=== PATIENT | female | born 1955 | race Caucasian/White ===

== ENCOUNTER 2018-04-15 13:15 | Outpatient (CLI) | payer OTHER | END 2018-04-15 13:16 | disposition home or self-care (01) | PROVIDERS: ATTEND Orthopaedic Surgery | DX: I89.0 Lymphedema, not elsewhere classified (principal) | CPT/HCPCS: G8978-GP-CL; G8979-GP-CL; G8980-GP-CL ==

== ENCOUNTER 2018-07-16 09:09 | Outpatient (CLI) | payer OTHER ==
--- NOTE | 2018-07-16 12:06 | HP ---
HISTORY OF PRESENT ILLNESS: Ms. Dianna Hendricks is a very pleasant 63-year-old, who [facility] of 2 wounds of the right lower extremity. 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 The patient states that she has been cleansing her wounds and applying an antibiotic ointment to the wounds followed by gauze secured with tape. The patient states that her wounds have improved with the preceding regimen. She states that she has been changing her dressing on a daily basis. The patient states that she has received treatment for lymphedema in the past and has been prescribed compression garments, which she does not utilize at the present time. She states that she also has been prescribed a pneumatic pump in the past for treatment of her lymphedema. PAST MEDICAL HISTORY: 1. Hypertension. 2. Chronic lower extremity lymphedema with non-filarial elephantiasis. 3. DVT of right lower extremity, remote. 4. Anemia. PAST SURGICAL HISTORY: 1. Cholecystectomy. 2. Right lower extremity surgery at age 16 and at age 17 for lymphedema. 3. x5. 4. Appendectomy. 5. Teeth extraction. 6. Right upper extremity surgery for fracture. 7. Left foot surgery. MEDICATIONS: The patient does not have a list of her medications with her today. She states that she is, however, taking Keflex. ALLERGIES: PENICILLIN. SOCIAL HISTORY: Social history is negative for tobacco or EtOH use. FAMILY HISTORY: Family history is significant for coronary artery disease. The patient states that her father was diagnosed with coronary artery disease. Family history is also significant for diabetes mellitus. The patient states that her grandmother was diagnosed with diabetes mellitus. PHYSICAL EXAMINATION: VITAL SIGNS: Temperature 97.5, pulse 61, blood pressure 151/67. GENERAL: A 63-year-old female, sitting on chair in examination room, in no acute distress. HEENT: Normocephalic and atraumatic. NECK: No nuchal rigidity. CHEST: Clear to auscultation. CV: Regular rate and rhythm. ABDOMEN: Soft. EXTREMITIES: Lymphedema of both lower extremities is noted on exam today. Two wounds of the right lower extremity are present, which measure approximately 8.0 x 7.0 cm and 1.8 x 2.1 cm. Granulation tissue is present within the margins of each wound. No purulent drainage is associated with either wound. No erythema of the skin surrounding either wound is present. No maceration of the skin of the periwound of either wound is noted. Numerous varicosities are present over the right and left lower extremities. ASSESSMENT AND PLAN: 1. Chronic lower extremity lymphedema with non-filarial elephantiasis. For both wounds of the right lower extremity, dressing changes of Medihoney will be initiated. These dressing changes are to be performed on a daily basis after cleansing and irrigation. The patient will continue to perform her own dressing changes. The patient is to continue Keflex as previously prescribed. Arrangements will also be made for Ms. Hendricks to be evaluated for in-home lymphedema therapy with a pneumatic pump. The patient understands and is in agreement with the preceding treatment plan. 2. Hypertension. 3. Deep venous thrombosis of right lower extremity, remote. 4. Anemia. Job ID: [id number]
[2018-07-16] MEDS ORDERED: Sodium Chloride 0.9% 15 ML NEB ONE (18:00)
== END 2018-07-16 09:10 | disposition home or self-care (01) ==
LOC: WCC 09:09
PROVIDERS: ATTEND Family Medicine
DX: I89.0 Lymphedema, not elsewhere classified (principal); I10 Essential (primary) hypertension; D64.9 Anemia, unspecified; Z86.718 Personal history of other venous thrombosis and embolism
CPT/HCPCS: 99203; A4218; G0463

== ENCOUNTER 2018-09-25 20:03 | Inpatient (IN) | payer OTHER ==
[~2018-09-25 20:03] MED LIST: ISOVUE-370 76%-LOCM 1 ML ONE
--- NOTE | 2018-09-25 20:41 | RAD ---
Portable frontal chest radiograph: 09/25/2018 COMPARISON: 06/26/2017 HISTORY: Pneumonia, cough FINDINGS: There is persistent dense opacity in the right base suggesting nonspecific airspace disease and pleural fluid. There is no pneumothorax. There is mild increased linear interstitial density in the left base, new. IMPRESSION: Focal inferior right basilar pleural-parenchymal opacity, nonspecific. This appears to re present a chronic process which could be on the basis of chronic pleural effusion with pulmonary parenchymal volume loss or scar. Superimposed infectious pneumonitis or underlying mass cannot be exc luded. Follow-up pulmonary consultation is advised given persistent abnormality in this region. CODE T
[2018-09-25 21:00] LABS: #Basophils 0.1 thou/uL (0.0-0.2); #Lymphocytes 0.4 thou/uL (1.20-3.40); #Monocytes 0.5 thou/uL (0.11-0.59); #Neutrophils 13.4 thou/uL (1.40-6.50); %Basophils 0.8 % (0.0-1.0); %Eosinophils 0.3 % (0.0-10.0); %Lymphocytes 2.4 % (21.0-51.0); %Monocytes 3.8 % (0.0-10.0); %Neutrophils 92.7 % (42.0-75.0); Hemoglobin 12.5 g/dL (12.0-16.0); Mean Corpuscular HGB CONC 31.7 g/dL (32.0-36.0); Mean Corpuscular Volume 88.3 fL (78.0-98.0); Mean Platelet Volume 8.5 fL (7.4-10.4); Platelet Count 245 thou/uL (130-400); Red Blood Cell (RBC) Count 4.48 mill/uL (4.20-5.40); White Blood Cell (WBC) Count 14.4 thou/uL (4.8-10.8)
[2018-09-25 21:21] LABS: ALT (SGPT) 10 U/L (8-55); AST (SGOT) 18 U/L (5-34); Albumin 3.7 g/dL (3.4-4.8); Alkaline Phosphatase 40 U/L (40-150); Anion Gap 17 mmol/L (10-20); BUN (Urea Nitrogen) 20 mg/dL (9.8-20.1); Bilirubin, Total 0.4 mg/dL (0.2-1.2); Calc. Creatinine Clearance 0 mL/min (70-130); Calcium 9.1 mg/dL (7.8-10.44); Carbon Dioxide 23 mmol/L (23-31); Chloride 103 mmol/L (98-107); Estimated GFR-MDRD 64; Glucose 103 mg/dL (80-115); Potassium 4.1 mmol/L (3.5-5.1); Protein, Total 7.7 g/dL (6.0-8.3); Sodium 139 mmol/L (136-145)
--- NOTE | 2018-09-25 22:27 | CT ---
Chest CT: 09/25/2018 COMPARISON: None HISTORY: Cough, pneumonia, shortness of breath TECHNIQUE: Axial CT imaging obtained at 5 mm intervals from lung apices through upper abdomen with IV contrast. Coronal reformatted imaging obtained. FINDINGS: Limited assessment of the upper abdomen demonstrates ill-defined hypodensity in the kayy h epatis and upper retroperitoneum adjacent to the vascular structures, unchanged when compared to CT of abdomen and pelvis examination performed at 02/05/2013. There is a small/moderate right pleural effusion, increased in volume since the 2013 examination. There is mild nonspecific bilateral axillary brianna prominence. No mediastinal or hilar lymphadenopath y. No pericardial or mediastinal fluid. No left pleural effusion. Subtle reticulonodular opacity noted within the anterior medial left upper lobe on image 18 with subt le focal areas of anterior left upper lobe consolidation. Diffuse mild reticulonodular density noted within the inferior aspect of the left lower lobe. There is dense consolidation involving the central and superior aspect of the right middle lobe. Ther e is dense consolidative change noted within the central and inferior/posterior aspect of the right lower lobe as well. These findings are suspicious for extensive multilobar infectious pneumonitis/asp iration. Review of the osseous structures demonstrates multilevel degenerative change throughout the mid/lower thoracic spine and upper lumbar spine. No worrisome lytic or blastic bone lesions are seen. IMPRESSION: Small/moderate right pleural effusion. Bilateral reticulonodular density with focal areas of pulmonary parenchymal opacity within the right middle lobe and right lower lobe, most consistent with multifocal infectious pneumonitis. Short-term follow-up imaging following treatment t o document resolution is advised. In addition, follow-up pulmonary consultation is advised. CODE T
[2018-09-25] MEDS ORDERED: Azithromycin 500 MG VIAL ONE (22:35)
[2018-09-25] MEDS ORDERED: cefTRIAXone\\ROCEPHIN 2 GM VIAL ONE (22:35)
[2018-09-25 23:10] LABS: Bilirubin Negative (Negative); Blood, Urine Negative (Negative); Clarity CLEAR (Clear); Glucose, Urine (Dipstick) Negative (Negative); Leukocyte Negative (Negative); Nitrite Negative (Negative); Protein, Urine (Dipstick) 30 mg/dL (Neg-Trace); Urobilinogen 0.2 mg/dL (0.2-1.0)
[2018-09-25 23:13] LABS: Bacteria/HPF None Seen HPF (None Seen); Hyaline Casts/LPF 4-6 HYALINE CAST LPF (0-3 Hyaline); Pathc Cast-AUWi Flag 0.68 (0-2.49); RBC/HPF 0-3 HPF (0-3); Squamous Epithelial 0-3 HPF (0-3); WBC/HPF None Seen HPF (0-3)
[2018-09-25 23:15] LABS: Specific Gravity, Urine Greater than 1.060 (1.002-1.036)
[2018-09-25] MEDS ORDERED: Senokot S 8.6-50 MG TAB PO PRN (23:23)
[2018-09-25] MEDS ORDERED: Bisacodyl 5 MG TAB PO PRN (23:23)
[2018-09-25] MEDS ORDERED: Sodium Chloride 0.9% 1,000 ML IV SCH (23:30)
[2018-09-25] MEDS ORDERED: Bacteriostatic Water 30 ML VIAL FS PRN (23:39)
[2018-09-25] MEDS ORDERED: methylPREDNISolone Sod Succ 40 MG VIAL IVP SCH (23:45)
[2018-09-26 01:09] VITALS: BMI 39.4
--- NOTE | 2018-09-26 01:40 | HP ---
CHIEF COMPLAINT: Generalized weakness and cough. HISTORY OF PRESENT ILLNESS: The patient is a very pleasant 63-year-old female with a history of lymphedema, chronic and hypertension, who presents to the hospital with complaints of generalized weakness and cough. The patient stated that her cough started about last week. She also had some chills. Her son and her have been ill. The patient stated that she went to the [facility] and was given a prescription for Levaquin, which she took two doses. The patient stated that she continued to have a feeling of unwell, felt very weak for the past couple days, not much of an appetite. The patient stated that today she was taking garbage out when her landlord noticed that she was struggling and then patient started crying, stating that she is really feeling unwell and feeling very fatigued at this time. The patient was brought into the hospital for further evaluation. The patient has been having diarrhea. The patient states that normally she does have baseline diarrhea. However, for the past few days, her diarrhea has been more significant. PAST MEDICAL HISTORY: 1. Hypertension. 2. Chronic lower extremity lymphedema, non-filarial elephantiasis. 3. Anemia. There is a remote history of possible DVT. PAST SURGICAL HISTORY: She has had a cholecystectomy. She has had x5. She has had appendectomy. She has had left foot surgery. She has had right upper extremity surgery for fracture. MEDICATIONS: The patient does not have a list with her. However, she has been taking Tessalon Perles and she also has been taking Levaquin. I have asked her to bring her medication list. ALLERGIES: SHE IS ALLERGIC TO PENICILLIN. THE PATIENT STATES THAT SHE HAS BEEN OKAY WITH TAKING OTHER COUSINS OF PENICILLIN. SOCIAL HISTORY: She denies any tobacco use, alcohol use, or smoking history. She is currently a full code. Lives with her family. FAMILY HISTORY: Significant for coronary artery disease. Father had diagnosed with CAD. Daughter also has lymphedema. Father had a history of diabetes. REVIEW OF SYSTEMS: All negative except for the ones mentioned above in the HPI. PHYSICAL EXAMINATION: VITAL SIGNS: Temperature of 98.8, heart rate of 100, blood pressure 140/90, and 98% on room air. Respiratory rate is 18. GENERAL: She is awake, alert, and oriented x3. Does not appear in any distress. CV: S1, S2 present. No murmurs, rubs, or gallops. LUNGS: Clear to auscultation. No rhonchi or wheezes noted. ABDOMEN: Soft and nontender. Bowel sounds are present x2. EXTREMITIES: She has significant lymphedema to bilateral lower extremities. NEUROVASCULAR: No focal deficits noted. HEENT: Normocephalic, atraumatic. Mucous membranes appear dry. Pupils are equal and reactive to light. SKIN: No cuts, lesions or bruises noted except for the significant lymphedema to bilateral lower extremities. LABORATORY RESULTS: WBC of 14.4, hemoglobin of 12.5, hematocrit of 39.5, and platelets of 245. Chemistry; sodium of 139, potassium of 4.1, BUN of 20, creatinine of 0.89. The patient did have a CT chest, which indicated a small moderate right pleural effusion which she had before. Bilateral reticular nodular density with focal areas of pulmonary parenchymal opacity in the right middle lobe and right lower lobe, most consistent with multifocal infectious pneumonitis. Also, recommended short-term followup imaging. ASSESSMENT AND PLAN: The patient is a very pleasant 63-year-old female, who presents to the hospital with complaints of generalized weakness and cough. 1. Generalized weakness and cough, most likely secondary to community-acquired pneumonia. We will start the patient on ceftriaxone and azithromycin. She only took two doses of her Levaquin. I will also start her on some DuoNeb and I will swab her for the flu since she has also been having diarrhea. Also, I will start her on some low-dose steroids. I did notify her that she will require a followup scan in about 1 to 2 months to make sure that these reticular densities have resolved. If not, she will require further consultations from a band splicer as an outpatient. I will also start her on Tessalon Perles for her cough, also with some Robitussin with codeine. 2. Mild dehydration. The patient appears to be dehydrated. We will start her on some gentle IV fluids. Also, she does have some oral thrush in her mouth. I will start her on some nystatin. 3. Diarrhea. The patient states that she has been having more diarrhea than usual. I will get a check of Clostridium difficile and also check a TSH. 4. Deep venous thrombosis prophylaxis. We will put the patient on subcu heparin. Job ID: [id number]
[2018-09-26 06:19] LABS: #Basophils 0.1 thou/uL (0.0-0.2); #Eosinphils 0.1 thou/uL (0.0-0.7); #Lymphocytes 0.5 thou/uL (1.20-3.40); #Monocytes 0.4 thou/uL (0.11-0.59); #Neutrophils 8.4 thou/uL (1.40-6.50); %Basophils 1.2 % (0.0-1.0); %Eosinophils 0.7 % (0.0-10.0); %Lymphocytes 5.3 % (21.0-51.0); %Monocytes 4.4 % (0.0-10.0); %Neutrophils 88.4 % (42.0-75.0); Hemoglobin 10.2 g/dL (12.0-16.0); Mean Corpuscular HGB CONC 31.6 g/dL (32.0-36.0); Mean Corpuscular Hemoglobin 27.7 pg (27.0-31.0); Mean Corpuscular Volume 87.7 fL (78.0-98.0); Mean Platelet Volume 8.9 fL (7.4-10.4); Platelet Count 203 thou/uL (130-400); RBC Distribution Width 13.9 % (11.5-14.5); Red Blood Cell (RBC) Count 3.66 mill/uL (4.20-5.40); White Blood Cell (WBC) Count 9.5 thou/uL (4.8-10.8)
[2018-09-26 06:21] LABS: Anion Gap 12 mmol/L (10-20); BUN (Urea Nitrogen) 17 mg/dL (9.8-20.1); Calc. Creatinine Clearance 118 mL/min (70-130); Calcium 8.2 mg/dL (7.8-10.44); Carbon Dioxide 23 mmol/L (23-31); Chloride 107 mmol/L (98-107); Estimated GFR-MDRD 79; Glucose 101 mg/dL (80-115); Potassium 3.7 mmol/L (3.5-5.1); Sodium 138 mmol/L (136-145)
[2018-09-26] MEDS: Enoxaparin Sodium 40 MG/0.4 ML SYRINGE SC SCH (09:23)
[2018-09-26] MEDS: methylPREDNISolone Sod Succ 40 MG VIAL IVP SCH (09:23)
[2018-09-26] MEDS: Nystatin 500,000 UNITS/5 ML UDCUP SSW SCH ×4 (09:23→21:44)
[2018-09-26] MEDS: Acetaminophen 325 MG TAB PO PRN (09:23)
[2018-09-26] MEDS ORDERED: Sodium Chloride 0.9% 1,000 ML IV SCH ×2 (11:12→20:00)
--- NOTE | 2018-09-26 11:14 | PDOC.PN ---
- Subjective Encounter Start Date: 09/26/18 (f/u multifocal pneumonia) Encounter Start Time: 11:13 Subjective: Pt reports feeling 'a little better', continues to cough and has some abd -: pain. Denies any new sx. - Objective Resuscitation Status - Order Detail: 09/25/18 23:23 Resuscitation Status Routine Resuscitation Status: FULL: Full Resuscitation Vital Signs & Weight: Vital Signs (12 hours) Temp Pulse Resp BP BP Pulse Ox 09/26/18 10:55 64 16 93 L 09/26/18 06:43 60 16 92 L 09/26/18 04:30 98.8 F 66 16 150/72 H 95 09/26/18 00:51 98.2 F 71 20 148/72 H 98 Weight Weight 215 lb 5 oz I&O: 09/25/18 09/26/18 09/27/18 06:59 06:59 06:59 Intake Total 500 Output Total 500 Balance 0 Result Diagrams: 09/26/18 04:46 09/26/18 04:46 EKG Reviewed by me: (Not on telemetry) Phys Exam - Physical Examination Constitutional: NAD Respiratory: no wheezing, no rales scattered rhonchi Cardiovascular: RRR, no significant murmur Gastrointestinal: soft, no distention, positive bowel sounds ttp (mild) throughout, no palpable abnormality/rebound/guarding massive LE lymphedema with a few cm ulceration of RLE Psychiatric: normal affect Dx/Plan (1) Multifocal pneumonia Code(s): J18.9 - PNEUMONIA, UNSPECIFIED ORGANISM Status: Acute (2) Lymphedema Code(s): I89.0 - LYMPHEDEMA, NOT ELSEWHERE CLASSIFIED Status: Chronic (3) Anemia Code(s): D64.9 - ANEMIA, UNSPECIFIED Status: Chronic Qualifiers: Anemia type: unspecified type Qualified Code(s): D64.9 - Anemia, unspecified - Plan * Pt admitted overnight - continue the rocephin and azithromycin for multi- focal pneumonia. Will need outpatient f/u regarding the abnormal CXR and possibly Pulmonology referral * Continued lower dose steroids and nebs * Add cough meds for prn use * Pt encouraged to take PO - monitor abd sx which are likely secondary to coughing. C diff negative * Lower IVF rate - with goal of reducing the amount that of fluid that will settle in her legs * wound care to RLE ulcer * * Anemia - needs outpatient evaluation and follow up * * thrush - continue nystatin * * dvt prophy -lovenox * gi prophy - not indicated * code status full * * anticipate d/c in the next 1-2 days * * reviewed plan of care with patient, no questions or further needs at end of eval.
[2018-09-26] MEDS ORDERED: Guaifenesin DM 100-10/5 ML UDCUP PO PRN (11:36)
[2018-09-26] MEDS: Benzonatate 100 MG CAP PO PRN ×2 (11:51→23:22)
[2018-09-26 18:26] LABS: Bilirubin Negative (Negative); Blood, Urine Negative (Negative); Clarity CLEAR (Clear); Glucose, Urine (Dipstick) Negative (Negative); Leukocyte Negative (Negative); Nitrite Negative (Negative); Protein, Urine (Dipstick) 30 mg/dL (Neg-Trace); Specific Gravity, Urine 1.043 (1.002-1.036); Urobilinogen 0.2 mg/dL (0.2-1.0); pH, Urine 6.5 (5.0-9.0)
[2018-09-26 18:29] LABS: Bacteria/HPF None Seen HPF (None Seen)
[2018-09-26 18:34] LABS: Pathc Cast-AUWi Flag 3.26 (0-2.49)
[2018-09-26 18:44] LABS: Hyaline Casts/LPF 0-3 HYALINE CAST LPF (0-3 Hyaline); Other Casts/LPF None Seen LPF (0-3 Hyaline); Transitional Epithelial 0-3 HPF (0-3)
[2018-09-26 18:45] LABS: Urine Culture Reflex No No
[2018-09-26] MEDS: Gabapentin 100 MG CAP PO SCH (21:44)
[2018-09-26] MEDS ORDERED: Azithromycin 500 MG in Sodium Chloride 0.9% 250 ML 250 ML IVPB SCH (22:00)
[2018-09-26] MEDS: cefTRIAXone\\ROCEPHIN 1 GM in Sodium Chloride 0.9% 100 ML IVPB SCH (23:19)
[2018-09-27] MEDS: HYDROcodone/Acetaminophen 5/325 mg Tablet PO PRN ×2 (00:48→22:30)
[2018-09-27 05:18] LABS: #Eosinphils 0.1 thou/uL (0.0-0.7); #Lymphocytes 0.7 thou/uL (1.20-3.40); #Monocytes 0.4 thou/uL (0.11-0.59); #Neutrophils 5.1 thou/uL (1.40-6.50); %Eosinophils 1.5 % (0.0-10.0); %Lymphocytes 10.7 % (21.0-51.0); %Monocytes 6.6 % (0.0-10.0); %Neutrophils 81.1 % (42.0-75.0); Anion Gap 9 mmol/L (10-20); BUN (Urea Nitrogen) 14 mg/dL (9.8-20.1); Calc. Creatinine Clearance 129 mL/min (70-130); Calcium 8.2 mg/dL (7.8-10.44); Carbon Dioxide 25 mmol/L (23-31); Chloride 109 mmol/L (98-107); Estimated GFR-MDRD 87; Glucose 106 mg/dL (80-115); Hemoglobin 9.5 g/dL (12.0-16.0); Mean Corpuscular HGB CONC 32.7 g/dL (32.0-36.0); Mean Corpuscular Hemoglobin 28.8 pg (27.0-31.0); Mean Platelet Volume 8.5 fL (7.4-10.4); Platelet Count 185 thou/uL (130-400); Potassium 3.5 mmol/L (3.5-5.1); Red Blood Cell (RBC) Count 3.32 mill/uL (4.20-5.40); Sodium 139 mmol/L (136-145); White Blood Cell (WBC) Count 6.2 thou/uL (4.8-10.8)
[2018-09-27] MEDS: Escitalopram Oxalate 10 mg Tablet PO SCH (09:09)
[2018-09-27] MEDS: Benzonatate 100 MG CAP PO PRN ×2 (09:10→22:07)
[2018-09-27] MEDS: Enoxaparin Sodium 40 MG/0.4 ML SYRINGE SC SCH (09:10)
[2018-09-27] MEDS: Nystatin 500,000 UNITS/5 ML UDCUP SSW SCH ×4 (09:10→22:08)
[2018-09-27] MEDS: methylPREDNISolone Sod Succ 40 MG VIAL IVP SCH (09:10)
[2018-09-27] MEDS: Gabapentin 100 MG CAP PO SCH ×2 (09:10→22:07)
--- NOTE | 2018-09-27 10:39 | EKG ---
Test Reason : Blood Pressure : / mmHG Vent. Rate : 073 BPM Atrial Rate : 073 BPM P-R Int : 126 ms QRS Dur : 094 ms QT Int : 394 ms P-R-T Axes : 079 053 043 degrees QTc Int : 434 ms Normal sinus rhythm Possible Left atrial enlargement Nonspecific ST abnormality Abnormal ECG Confirmed by JAY ESCOBAR ([id number]), editor trade journal DANIKA KWONG ([id number]) on 09/27/2018 10:39:00 AM Referred By: Confirmed By:JAY ESCOBAR
[2018-09-27] MEDS ORDERED: Amlodipine 5 MG TAB PO SCH (14:00)
[2018-09-27] MEDS ORDERED: Metoclopramide HCl 10 MG/2 ML VIAL IVP PRN (14:03)
--- NOTE | 2018-09-27 14:07 | PDOC.PN ---
- Subjective Encounter Start Date: 09/27/18 (f/u pneumonia) Encounter Start Time: 14:04 Subjective: Pt reports she is not feeling well. States cough continues -: low appetite, low energy, nausea - Objective Resuscitation Status - Order Detail: 09/25/18 23:23 Resuscitation Status Routine Resuscitation Status: FULL: Full Resuscitation Vital Signs & Weight: Vital Signs (12 hours) Temp Pulse Resp BP Pulse Ox 09/27/18 11:42 98.3 F 61 16 154/75 H 95 09/27/18 11:16 71 16 95 09/27/18 08:03 98.1 F 65 16 150/72 H 92 L 09/27/18 06:56 70 16 95 09/27/18 04:00 98.4 F 67 16 156/83 H 96 Weight Admit Weight 215 lb 5 oz Weight 215 lb 5 oz I&O: 09/26/18 09/27/18 09/28/18 06:59 06:59 06:59 Intake Total 500 2917 Output Total 500 600 Balance 0 2317 Result Diagrams: 09/27/18 04:41 09/27/18 04:41 EKG Reviewed by me: No (No tele) Phys Exam - Physical Examination Constitutional: NAD Respiratory: no wheezing, no rales scattered rhonchi, good air movement Cardiovascular: RRR 2/6 JOSEFINA at [facility] Gastrointestinal: soft, non-tender, no distention, positive bowel sounds massive lymphedema bilateral LE - unchanged Dx/Plan (1) Multifocal pneumonia Code(s): J18.9 - PNEUMONIA, UNSPECIFIED ORGANISM Status: Acute (2) Lymphedema Code(s): I89.0 - LYMPHEDEMA, NOT ELSEWHERE CLASSIFIED Status: Chronic (3) Anemia Code(s): D64.9 - ANEMIA, UNSPECIFIED Status: Chronic Qualifiers: Anemia type: unspecified type Qualified Code(s): D64.9 - Anemia, unspecified - Plan * * Pt without any significant improvement and unable to meet ADL's - not safe for discharge to home * continue rocephin, change azithromycin to oral starting tonight with planned 5 day course * Will need outpatient f/u regarding the abnormal CXR and possibly Pulmonology referral * Change to prednisone, continue nebs * Add cough meds for prn use * Pt encouraged to take PO - monitor abd sx which are likely secondary to coughing. C diff negative * Continue lower IVF rate - with goal of reducing the amount that of fluid that will settle in her legs * wound care to RLE ulcer - seen by wound care * * Anemia - needs outpatient evaluation and follow up * * thrush - continue nystatin * * dvt prophy -lovenox * gi prophy - not indicated * code status full * * anticipate d/c in the next 1-2 days. Pt lives alone, unable to meet ADL's with current condition and not safe for discharge to home. * * reviewed plan of care with patient, no questions or further needs at end of eval. .
[2018-09-27] MEDS: Sodium Chloride 0.9% 1,000 ML IV SCH (14:36)
[2018-09-27] MEDS: Acetaminophen 325 MG TAB PO PRN (14:36)
[2018-09-27] MEDS: Azithromycin 250 MG TAB PO SCH (22:07)
[2018-09-27] MEDS: cefTRIAXone\\ROCEPHIN 1 GM in Sodium Chloride 0.9% 100 ML IVPB SCH (22:35)
[2018-09-28 05:09] LABS: #Eosinphils 0.1 thou/uL (0.0-0.7); #Lymphocytes 0.8 thou/uL (1.20-3.40); #Monocytes 0.5 thou/uL (0.11-0.59); #Neutrophils 5.9 thou/uL (1.40-6.50); %Eosinophils 1.7 % (0.0-10.0); %Lymphocytes 10.5 % (21.0-51.0); %Monocytes 6.4 % (0.0-10.0); %Neutrophils 81.4 % (42.0-75.0); Hemoglobin 10.6 g/dL (12.0-16.0); Mean Corpuscular HGB CONC 31.7 g/dL (32.0-36.0); Mean Corpuscular Hemoglobin 28.3 pg (27.0-31.0); Mean Corpuscular Volume 89.2 fL (78.0-98.0); Mean Platelet Volume 8.2 fL (7.4-10.4); Platelet Count 235 thou/uL (130-400); RBC Distribution Width 14.1 % (11.5-14.5); Red Blood Cell (RBC) Count 3.76 mill/uL (4.20-5.40); White Blood Cell (WBC) Count 7.3 thou/uL (4.8-10.8)
[2018-09-28 05:29] LABS: Anion Gap 13 mmol/L (10-20); BUN (Urea Nitrogen) 13 mg/dL (9.8-20.1); Calc. Creatinine Clearance 133 mL/min (70-130); Calcium 8.6 mg/dL (7.8-10.44); Carbon Dioxide 22 mmol/L (23-31); Chloride 108 mmol/L (98-107); Estimated GFR-MDRD 90; Glucose 95 mg/dL (80-115); Potassium 4.1 mmol/L (3.5-5.1); Sodium 139 mmol/L (136-145)
[2018-09-28] MEDS: Benzonatate 100 MG CAP PO PRN (06:18)
[2018-09-28] MEDS: Amlodipine 5 MG TAB PO SCH (08:25)
[2018-09-28] MEDS: Gabapentin 100 MG CAP PO SCH ×2 (08:26→20:36)
[2018-09-28] MEDS: predniSONE 20 MG TAB PO SCH (08:26)
[2018-09-28] MEDS: Escitalopram Oxalate 10 mg Tablet PO SCH (08:26)
[2018-09-28] MEDS: Nystatin 500,000 UNITS/5 ML UDCUP SSW SCH ×4 (08:27→20:34)
[2018-09-28] MEDS: Enoxaparin Sodium 40 MG/0.4 ML SYRINGE SC SCH (08:27)
[2018-09-28] MEDS ORDERED: Benzonatate 100 MG CAP PO SCH (11:30)
--- NOTE | 2018-09-28 11:34 | PDOC.PN ---
- Subjective Encounter Start Date: 09/28/18 (f/u pneumonia) Encounter Start Time: 11:30 Subjective: Pt denies any significant change in cough. Able to ambulate -: short distances with PT. Now having diarrhea x 2 and stool -: leakage with coughing - Objective Resuscitation Status - Order Detail: 09/25/18 23:23 Resuscitation Status Routine Resuscitation Status: FULL: Full Resuscitation Vital Signs & Weight: Vital Signs (12 hours) Temp Pulse Resp BP BP Pulse Ox 09/28/18 08:25 60 167/80 H 09/28/18 07:53 98 F 60 18 167/80 H 100 09/28/18 07:48 60 16 96 09/28/18 03:42 98.2 F 63 20 159/77 H 96 09/27/18 23:40 98.6 F 70 20 167/88 H 94 L Weight Admit Weight 215 lb 5 oz Weight 215 lb 5 oz I&O: 09/27/18 09/28/18 09/29/18 06:59 06:59 06:59 Intake Total 2917 2843 Output Total 600 850 Balance 2317 1992 Result Diagrams: 09/28/18 04:34 09/28/18 04:34 Phys Exam - Physical Examination Constitutional: NAD Respiratory: no wheezing, no rales scattered rhonchi, good air movement Cardiovascular: RRR, no significant murmur Gastrointestinal: soft, non-tender, no distention, positive bowel sounds unchanged - massive lymphedema bilateral Deviation from normal: thickened skin and hyperpigmentation bilateral LE Dx/Plan (1) Multifocal pneumonia Code(s): J18.9 - PNEUMONIA, UNSPECIFIED ORGANISM Status: Acute (2) Lymphedema Code(s): I89.0 - LYMPHEDEMA, NOT ELSEWHERE CLASSIFIED Status: Chronic (3) Anemia Code(s): D64.9 - ANEMIA, UNSPECIFIED Status: Chronic Qualifiers: Anemia type: unspecified type Qualified Code(s): D64.9 - Anemia, unspecified - Plan * * Pt without any significant improvement in condition * continue rocephin, azithromycin with planned 5 day course * repeat CXR today and Pulmonology consult (per nursing staff, not available on Observation status) * steroids, nebs * schedule cough meds and continue prn * Pt encouraged to take PO - monitor abd sx which are likely secondary to coughing. C diff negative * * D/c IVF, pt encouraged to take more PO * * wound care to RLE ulcer - seen by wound care * * Anemia - needs outpatient evaluation and follow up * * thrush - appears resolved, continue nystatin here and do not anticipate she will need it at home * dvt prophy -lovenox * gi prophy - not indicated * code status full * * no change -anticipate d/c in the next 1-2 days. Pt lives alone, unable to meet ADL's with current condition and not safe for discharge to home. * * reviewed plan of care with patient, no questions or further needs at end of eval. * 16:15 - Reviewed CXR and enlarging right pleural effusion. Given this, will change patient to inpatient status as this needs further evaluation in the setting of pneumonia. will also order lateral decubitus, and pulmonology consultation for tomorrow.
--- NOTE | 2018-09-28 12:25 | RAD ---
EXAM: 2 view chest: INDICATIONS: Pneumonia COMPARISON: 09/25/2018 FINDINGS: Enlarging right pleural effusion. There is now small left pleural effusion. Right basilar a telectasis or consolidation. Lung shine otherwise clear and unchanged. Borderline cardiomegaly is unchanged. IMPRESSION: Enlarging right effusion. Small left effusion.
[2018-09-28] MEDS: Sodium Chloride 0.9% 1,000 ML IV SCH (15:02)
--- NOTE | 2018-09-28 16:53 | PDOC.EVN ---
Event Note - Event Note Event Note: Discussed with patient right pleural effusion, Pulmonology consult for tomorrow -Dr. Lucas will see her. Will try a dose of lasix 20 mg IV x 1. Pt takes prn lasix 40 mg at home - averages once weekly - so anticipate a positive response with this dose.
[2018-09-28] MEDS ORDERED: Furosemide 20 MG/2 ML VIAL SLOW IVP SCH (17:00)
--- NOTE | 2018-09-28 17:51 | RAD ---
EXAM: XR Chest Rt Lat Decub Only PROVIDED CLINICAL HISTORY: Right pleural effusion with pneumonia. COMPARISON: [facility] chest x-ray on 09/28/2018. FINDINGS: There is dense opacity seen at the right lung base on this decubitus view of the chest. Only a very s mall amount of fluid is seen extending along the right lateral chest suggesting either dense consolidation at the right lung base with associated small right pleural effusion versus partial locu lation of pleural fluid at the right lung base. Tiny left pleural effusion is seen. Cardiac border is obscured. Osteopenia is present. Degenerative changes are again noted in the spine. IMPRESSION: Only a small amount of fluid is seen extending along the right lateral hemithorax on decubitus positi oning suggesting that at least a small portion of the density at the right lung base is related to freely layering pleural fluid. The remainder of the increased density at the right lung base may be r elated to dense area of consolidation secondary to pneumonia and/or atelectasis.
[2018-09-28] MEDS: cefTRIAXone\\ROCEPHIN 1 GM in Sodium Chloride 0.9% 100 ML IVPB SCH (20:36)
[2018-09-28] MEDS: Azithromycin 250 MG TAB PO SCH (20:36)
[2018-09-28] MEDS: HYDROcodone/Acetaminophen 5/325 mg Tablet PO PRN (22:11)
[2018-09-29 06:22] LABS: Anion Gap 12 mmol/L (10-20); BUN (Urea Nitrogen) 14 mg/dL (9.8-20.1); Calc. Creatinine Clearance 123 mL/min (70-130); Calcium 8.5 mg/dL (7.8-10.44); Carbon Dioxide 26 mmol/L (23-31); Chloride 106 mmol/L (98-107); Estimated GFR-MDRD 83; Glucose 84 mg/dL (80-115); Potassium 3.9 mmol/L (3.5-5.1); Sodium 140 mmol/L (136-145)
[2018-09-29 06:30] LABS: #Eosinphils 0.2 thou/uL (0.0-0.7); #Lymphocytes 0.9 thou/uL (1.20-3.40); #Monocytes 0.5 thou/uL (0.11-0.59); #Neutrophils 5.8 thou/uL (1.40-6.50); %Eosinophils 2.3 % (0.0-10.0); %Lymphocytes 12.3 % (21.0-51.0); %Monocytes 6.2 % (0.0-10.0); %Neutrophils 79.2 % (42.0-75.0); Hemoglobin 10.1 g/dL (12.0-16.0); Mean Corpuscular HGB CONC 31.3 g/dL (32.0-36.0); Mean Corpuscular Hemoglobin 27.8 pg (27.0-31.0); Mean Corpuscular Volume 88.8 fL (78.0-98.0); Platelet Count 243 thou/uL (130-400); RBC Distribution Width 14.1 % (11.5-14.5); Red Blood Cell (RBC) Count 3.63 mill/uL (4.20-5.40); White Blood Cell (WBC) Count 7.4 thou/uL (4.8-10.8)
[2018-09-29] MEDS: Escitalopram Oxalate 10 mg Tablet PO SCH (07:42)
[2018-09-29] MEDS: predniSONE 20 MG TAB PO SCH (07:43)
[2018-09-29] MEDS: Gabapentin 100 MG CAP PO SCH (07:43)
[2018-09-29] MEDS: Enoxaparin Sodium 40 MG/0.4 ML SYRINGE SC SCH (07:44)
[2018-09-29] MEDS: Amlodipine 5 MG TAB PO SCH (07:44)
[2018-09-29] MEDS: Nystatin 500,000 UNITS/5 ML UDCUP SSW SCH ×3 (07:44→16:01)
[2018-09-29] MEDS ORDERED: Furosemide 40 MG TAB PO SCH (09:00)
--- NOTE | 2018-09-29 11:51 | PDOC.PN ---
- Subjective Encounter Start Date: 09/29/18 Encounter Start Time: 16:00 Subjective: Patient reports improvement in cough and SOB. No fever. -: Ready to go home. - Objective Resuscitation Status - Order Detail: 09/25/18 23:23 Resuscitation Status Routine Resuscitation Status: FULL: Full Resuscitation MAR Reviewed: Yes Vital Signs & Weight: Vital Signs (12 hours) Temp Pulse Resp BP Pulse Ox 09/29/18 10:12 61 16 95 09/29/18 07:45 97 09/29/18 07:39 98.1 F 61 18 150/72 H 97 09/29/18 07:23 59 L 16 95 09/29/18 04:43 98.7 F 60 14 143/67 H 96 09/28/18 23:59 98.4 F 67 16 139/60 98 Weight Admit Weight 215 lb 5 oz Weight 215 lb 5 oz I&O: 09/28/18 09/29/18 09/30/18 06:59 06:59 06:59 Intake Total 2843 340 Output Total 850 Balance 1992 340 Result Diagrams: 09/29/18 05:47 09/29/18 05:47 Phys Exam - Physical Examination Constitutional: NAD HEENT: moist MMs Respiratory: no wheezing, no rales, no rhonchi decrease breath sounds in right base Cardiovascular: RRR Gastrointestinal: soft, positive bowel sounds Neurological: non-focal Psychiatric: normal affect, A&O x 3 Dx/Plan (1) Multifocal pneumonia Code(s): J18.9 - PNEUMONIA, UNSPECIFIED ORGANISM Status: Acute Comment: on antibiotics, Dr. Lucas consulted, cleared for discharge (2) Hypertension Code(s): I10 - ESSENTIAL (PRIMARY) HYPERTENSION Status: Acute (3) Anemia Code(s): D64.9 - ANEMIA, UNSPECIFIED Status: Chronic Qualifiers: Anemia type: unspecified type Qualified Code(s): D64.9 - Anemia, unspecified (4) Lymphedema Code(s): I89.0 - LYMPHEDEMA, NOT ELSEWHERE CLASSIFIED Status: Chronic Comment: non-filarial (5) Diarrhea Code(s): R19.7 - DIARRHEA, UNSPECIFIED Status: Chronic Qualifiers: Diarrhea type: functional diarrhea Qualified Code(s): K59.1 - Functional diarrhea Comment: negative C.diff (6) Pleural effusion Code(s): J90 - PLEURAL EFFUSION, NOT ELSEWHERE CLASSIFIED Status: Chronic Comment: right sided, minimal layering consistent with chronic loculated - Plan cont current plan of care, continue antibiotics, respiratory therapy discharge home, has appt with PCP for Saturday * . - Discharge Day Encounter end time: 16:15
--- NOTE | 2018-09-29 12:46 | CON ---
DATE OF CONSULTATION: 09/29/2018 CONSULTING PHYSICIAN: Dr. Boss. REASON FOR CONSULTATION: Right pleural effusion. HISTORY OF PRESENT ILLNESS: This patient is a 63-year-old female, who was hospitalized on 09/25/2018 with weakness, cough, and congestion. Symptoms started about a week ago. She has actually been improving during the hospitalization, but there have been concerns about a continued small right pleural effusion. In looking back in her past history, this effusion has been a problem for at least 10 years. She was seen by Dr. Hansen many years ago in the hospital for the same thing. This was treated conservatively without thoracentesis. Of note, this patient has the worst lymphedema I have ever seen. I think it is managed on an as-needed basis with diuretics, but she has only had the dose of diuretics that I gave her yesterday in the hospital. Currently, she is not short of breath. Has no complaints. PAST MEDICAL HISTORY: 1. Chronic lower extremity lymphedema. 2. Hypertension. 3. Anemia. PAST SURGICAL HISTORY: 1. Cholecystectomy. 2. . 3. Appendectomy. 4. Left foot surgery. 5. Right upper extremity fracture surgery. MEDICATIONS: Prior to admission, 1. Diclofenac one tablet daily. 2. Furosemide 40 mg daily. 3. Gabapentin 100 mg b.i.d. 4. Escitalopram 5 mg daily. 5. Amlodipine 10 mg daily. ALLERGIES: PENICILLIN. SOCIAL HISTORY: Nonsmoker. Does not consume alcohol. Does not use illicit drugs. FAMILY MEDICAL HISTORY: Remarkable for coronary artery disease and lymphedema. REVIEW OF SYSTEMS: Otherwise, negative. PHYSICAL EXAMINATION: VITAL SIGNS: Temperature 98.1, pulse 81, respirations 18, O2 saturation 97%, and blood pressure 150/72. GENERAL: She is awake and alert, in no distress. HEENT: Unremarkable. NECK: No adenopathy or JVD. LUNGS: She has mildly decreased breath sounds in the right base compared to left. No wheezes. No rhonchi. CARDIAC: S1 and S2, regular. ABDOMEN: Soft, nontender, and nondistended. EXTREMITIES: She has profound lymphedema from her thighs downward. LABORATORY DATA: White blood cell count 7.4, hematocrit 32.3, and platelet count 243. Sodium 140, potassium 3.9, chloride 106, CO2 of 26, BUN 14, creatinine 0.7, and glucose 84. IMAGING DATA: Her x-ray shows a small right effusion, does not really layer, but she has had some degree of effusion on every x-ray she has been in the hospital. ASSESSMENT: Effusion, probably related to her chronic lymphedema and I doubt related to any infectious process. RECOMMENDATIONS: I would switch her over to oral antibiotics and consider sending her home. I would resume her home Lasix dose. Dr. Hansen has seen her in the past and if she stays in the hospital, I will have him check on her tomorrow. Job ID: [id number]
[2018-09-29 16:46] VITALS: BP 150/83; TEMP 98.2
--- NOTE | 2018-09-30 01:14 | DIS ---
DATE OF ADMISSION: 09/26/2018 DATE OF DISCHARGE: 09/29/2018 PRIMARY CARE PHYSICIAN: Dr. Jhon Ureña. REASON FOR ADMISSION: Community-acquired pneumonia. DIAGNOSES AT DISCHARGE: 1. Multifocal pneumonia. 2. Chronic right pleural effusion. 3. Hypertension. 4. Anemia. 5. Chronic lymphedema. 6. Chronic diarrhea. PROCEDURES: None. CONSULTATIONS: Pulmonology, Dr. Lucas. SUMMARY OF HOSPITAL COURSE: This is a 63-year-old white female with a known history of severe lymphedema and chronic right pleural effusion. She presented with a cough for the last week and some chills, weakness, was prescribed Levaquin, but was not improving after a couple of doses, so came to the emergency room. In the ER, she had notation of the right pleural effusion, which was similar to previous, maybe a little worse and bilateral reticulonodular densities consistent with multifocal infectious pneumonitis. The patient was initially put in observation, given IV antibiotics, was not improving very quickly. She was switched to inpatient status. Dr. Lucas was consulted. The patient did eventually improve. On day of discharge, she was saturating well on room air. Her cough was much improved. Her weakness is improved and she was ready to go home. DISCHARGE MANAGEMENT: Discharged home. FOLLOWUP: Follow up with Dr. Ureña as scheduled in 2 days. ACTIVITY: As tolerated. DIET: Healthy heart diet. MEDICATIONS: 1. Azithromycin 250 mg daily for 4 more days. 2. Cefdinir 300 mg twice a day for 5 days. 3. Tessalon 100 mg 3 times a day as needed for cough, 20 caps dispensed. 4. Guaifenesin DM 10 mL every 6 hours as needed for cough, 150 mL dispensed. 5. Prednisone 40 mg daily for 3 more days, total of 5 days of steroids. 6. Lexapro 5 mg daily. 7. Gabapentin 100 mg twice a day. 8. Amlodipine 10 mg daily. 9. Furosemide 40 mg daily as needed. TIME SPENT: Arranging the details of this discharge took 32 minutes. Job ID: [id number]
== END 2018-09-29 16:58 | disposition home or self-care (01) | DRG 194 ==
LOC: ERS 20:03 → OBSVTOIN 09-26 00:56 → 2SW 09-26 00:56 → T4-B 09-28 18:32
PROVIDERS: ADMIT Internal Medicine; ATTEND Internal Medicine
DX: J18.9 Pneumonia, unspecified organism (principal); B37.0 Candidal stomatitis; J91.8 Pleural effusion in other conditions classified elsewhere; K52.9 Noninfective gastroenteritis and colitis, unspecified; I89.0 Lymphedema, not elsewhere classified; D64.9 Anemia, unspecified; E86.0 Dehydration; Z90.49 Acquired absence of other specified parts of digestive tract; Z79.899 Other long term (current) drug therapy; Z88.0 Allergy status to penicillin
CPT/HCPCS: 36415; 51701; 71045; 71046; 71260; 80048; 80053; 81001; 81003; 81015; 83880; 84145; 84443; 84484; 85025; 87040; 87324; 87449; 87804; 93005; 94640; 96361; 96365; 96375; A4353; J0456; J0696; J1650; J1940; J2920; J3490; J7050; J7512; J7620; Q9966

== ENCOUNTER 2019-07-25 17:32 | Emergency (ER) | payer OTHER ==
[~2019-07-25 17:32] MED LIST changes: -ISOVUE-370 76%-LOCM 1 ML ONE; +Iopamidol 370 76% 100 ML VIAL ONE
--- NOTE | 2019-07-25 18:43 | RAD ---
2 views of the chest: 07/25/2019 COMPARISON: 09/28/2018 HISTORY: Flulike symptoms with dry cough FINDINGS: Dense pleural and parenchymal opacity noted within the right infrahilar region/right lung b ase, similar when compared to 01/29/2019. Left lung is clear. No pneumothorax is seen. IMPRESSION: Nonspecific dense pleural and parenchymal opacity within the right lung base, as seen on prior imaging. Findings may be on the basis of infectious pneumonitis/aspiration with associated pleural effusion. Underlying mass lesion on the basis of malignancy cannot be excluded. Given persist ence since the 09/25/2018 examination, follow-up CT examination of the chest is suggested. CODE T
[2019-07-25 19:06] LABS: #Eosinphils 0.4 thou/uL (0.0-0.7); #Lymphocytes 0.8 thou/uL (1.20-3.40); #Monocytes 0.3 thou/uL (0.11-0.59); #Neutrophils 5.4 thou/uL (1.40-6.50); %Basophils 0.3 % (0.0-1.0); %Eosinophils 5.9 % (0.0-10.0); %Lymphocytes 11.6 % (21.0-51.0); %Monocytes 4.4 % (0.0-10.0); %Neutrophils 77.8 % (42.0-75.0); Hemoglobin 13.5 g/dL (12.0-16.0); Mean Corpuscular HGB CONC 33.4 g/dL (32.0-36.0); Mean Corpuscular Hemoglobin 31.2 pg (27.0-31.0); Mean Corpuscular Volume 93.3 fL (78.0-98.0); Mean Platelet Volume 8.4 fL (7.4-10.4); Platelet Count 198 thou/uL (130-400); RBC Distribution Width 12.4 % (11.5-14.5); Red Blood Cell (RBC) Count 4.33 mill/uL (4.20-5.40); White Blood Cell (WBC) Count 6.9 thou/uL (4.8-10.8)
[2019-07-25 19:36] LABS: ALT (SGPT) Less than 7 U/L (8-55); AST (SGOT) 11 U/L (5-34); Alkaline Phosphatase 43 U/L (40-110); Anion Gap 11 mmol/L (10-20); BUN (Urea Nitrogen) 8 mg/dL (9.8-20.1); Bilirubin, Total 0.5 mg/dL (0.2-1.2); Calc. Creatinine Clearance 0 mL/min (70-130); Carbon Dioxide 29 mmol/L (23-31); Chloride 106 mmol/L (98-107); Estimated GFR-MDRD 70; Globulin 3.4 g/dL (2.4-3.5); Glucose 96 mg/dL (80-115); Protein, Total 7.4 g/dL (6.0-8.3); Sodium 142 mmol/L (136-145)
--- NOTE | 2019-07-25 20:27 | CT ---
Chest CT with IV contrast: 07/25/2019 COMPARISON: CT of abdomen and pelvis 02/05/2013, CT of chest 09/25/2018 HISTORY: Shortness of breath TECHNIQUE: Axial CT imaging at 5 mm intervals from lung apices through upper abdomen with IV contrast . Coronal and sagittal reformatted imaging obtained. FINDINGS: Mildly prominent lymph nodes are noted within the axillary regions bilaterally, stable when compared to the prior examination. There is questionable mild skin thickening of the right breast. No discrete mediastinal or hilar lymphadenopathy is noted. No significant mediastinal or pericardial fluid. Trace left pleural effusion. There is a persistent m oderate-sized pleural effusion on the right, slightly increased in volume when compared to the 09/25/2018 examination. The left lung appears grossly unremarkable. There is no endobronchial lesion a ppreciated. There is partial consolidation/collapse within the inferior aspect of the right lower lobe, new when compared to 02/05/2013 and similar when compared to 09/25/2018. There is atherosclerotic calcification of the thoracic aorta and coronary arteries. There is nonspecific hypodensity within the imaged portion of the kayy hepatis and adjacent to the p ortal venous structures, unchanged when compared to the 02/05/2013 CT of the abdomen and pelvis. Review of the osseous structures demonstrates no discrete lytic or blastic bone lesion. IMPRESSION: Persistent nonspecific prominent right pleural effusion with partial volume loss of the r ight lower lobe. Recommend follow-up pulmonary consultation. Chronic pleural fluid can be seen on the basis of malignancy or chronic infection. Questionable skin thickening involving the right breast for which follow-up mammography is advised. Nonspecific hypodensity within the region of the kayy hepatis and adjacent to the portal venous stru ctures, not fully visualized on this examination, demonstrating an appearance similar in compared to 02/05/2013 CT. CODE T
[2019-07-25] MEDS ORDERED: Dexamethasone 10 MG/ML VIAL ONE (21:29)
== END 2019-07-25 22:13 | disposition home or self-care (01) ==
LOC: ERS 17:32
DX: I89.0 Lymphedema, not elsewhere classified (principal); R05 Cough; R19.7 Diarrhea, unspecified; I10 Essential (primary) hypertension; K21.9 Gastro-esophageal reflux disease without esophagitis; F31.9 Bipolar disorder, unspecified
CPT/HCPCS: 71046; 71260; 80053; 85025; 87324; 87449; 87804; 96361; 96374; J1100; Q9967

== ENCOUNTER 2020-05-27 19:12 | Emergency (ER) | payer MEDICARE, OTHER ==
[2020-05-27 20:05] LABS: #Eosinphils 0.3 thou/uL (0.0-0.7); #Lymphocytes 0.9 thou/uL (1.20-3.40); #Monocytes 0.3 thou/uL (0.11-0.59); #Neutrophils 7.3 thou/uL (1.40-6.50); %Basophils 0.3 % (0.0-1.0); %Eosinophils 3.5 % (0.0-10.0); %Lymphocytes 10.3 % (21.0-51.0); %Monocytes 3.2 % (0.0-10.0); %Neutrophils 82.7 % (42.0-75.0); Hemoglobin 13.5 g/dL (12.0-16.0); Mean Corpuscular HGB CONC 33.4 g/dL (32.0-36.0); Mean Corpuscular Volume 92.7 fL (78.0-98.0); Platelet Count 219 thou/uL (130-400); RBC Distribution Width 12.4 % (11.5-14.5); Red Blood Cell (RBC) Count 4.35 mill/uL (4.20-5.40); White Blood Cell (WBC) Count 8.9 thou/uL (4.8-10.8)
[2020-05-27 20:14] LABS: Bilirubin Negative (Negative); Blood, Urine Negative (Negative); Glucose, Urine (Dipstick) Negative (Negative); Ketone, Urine Negative (Negative); Leukocyte Moderate (Negative); Nitrite Negative (Negative); Protein, Urine (Dipstick) Negative (Neg-Trace); Specific Gravity, Urine 1.025 (1.005-1.030); Urobilinogen 0.2 mg/dL (Less than 2)
[2020-05-27 20:20] LABS: Clarity Clear (Clear)
[2020-05-27 20:21] LABS: Bacteria/HPF 1+ HPF (None Seen); RBC/HPF None Seen HPF (0-3); Squamous Epithelial 0-3 HPF (0-3)
[2020-05-27 20:25] LABS: ALT (SGPT) 8 U/L (8-55); AST (SGOT) 12 U/L (5-34); Albumin 3.8 g/dL (3.4-4.8); Alcohol Less than 10 mg/dL (Less than 10); Alkaline Phosphatase 37 U/L (40-110); Anion Gap 15 mmol/L (10-20); BUN (Urea Nitrogen) 17 mg/dL (9.8-20.1); Bilirubin, Total 0.3 mg/dL (0.2-1.2); Calc. Creatinine Clearance 0 mL/min (70-130); Calcium 8.7 mg/dL (7.8-10.44); Carbon Dioxide 24 mmol/L (23-31); Chloride 106 mmol/L (98-107); Globulin 3.7 g/dL (2.4-3.5); Glucose 101 mg/dL (80-115); Potassium 4.1 mmol/L (3.5-5.1); Protein, Total 7.5 g/dL (6.0-8.3); Sodium 141 mmol/L (136-145)
[2020-05-27 20:25] LABS: Amphetamine Not Detected (NotDetected); Barbiturates Screen Detected (NotDetected); Benzodiazepine Screen Not Detected (NotDetected); Cocaine Metabolite Screen Not Detected (NotDetected); Medtox Control Line Valid? VALID (VALID); Medtox Reader # READER 1; Methadone Not Detected (NotDetected); Methamphetamine Not Detected (NotDetected); Opiate Screen Not Detected (NotDetected); Oxycodone Screen Not Detected (NotDetected); Phencyclidine (PCP) Not Detected (NotDetected); THC/Cannabinoid Screen Not Detected (NotDetected); Tricyclic Screen Not Detected (NotDetected)
== END 2020-05-27 23:59 | disposition home or self-care (01) ==
LOC: ERS 19:12
DX: F43.20 Adjustment disorder, unspecified (principal); I10 Essential (primary) hypertension; K21.9 Gastro-esophageal reflux disease without esophagitis; Z79.899 Other long term (current) drug therapy
CPT/HCPCS: 36415; 80053; 80306; 80307; 81003; 81015; 85025; 99285

== ENCOUNTER 2021-12-27 23:34 | Observation (INO) | payer OTHER ==
[2021-12-28 00:46] LABS: #Eosinphils 0.3 thou/uL (0.0-0.7); #Lymphocytes 1.2 thou/uL (1.20-3.40); #Monocytes 0.5 thou/uL (0.11-0.59); #Neutrophils 3.9 thou/uL (1.40-6.50); %Basophils 0.1 % (0.0-1.0); %Lymphocytes 19.7 % (21.0-51.0); %Monocytes 8.6 % (0.0-10.0); %Neutrophils 66.6 % (42.0-75.0); Hemoglobin 10.6 g/dL (12.0-16.0); Mean Corpuscular HGB CONC 34.1 g/dL (32.0-36.0); Mean Corpuscular Hemoglobin 33.1 pg (27.0-31.0); Mean Corpuscular Volume 97.2 fL (78.0-98.0); Mean Platelet Volume 8.2 fL (7.4-10.4); Platelet Count 191 thou/uL (130-400); RBC Distribution Width 13.1 % (11.5-14.5); Red Blood Cell (RBC) Count 3.21 mill/uL (4.20-5.40); White Blood Cell (WBC) Count 5.8 thou/uL (4.8-10.8)
[2021-12-28 01:01] LABS: Anion Gap 14 mmol/L (10-20); BUN (Urea Nitrogen) 27 mg/dL (9.8-20.1); Calc. Creatinine Clearance 0 mL/min (70-130); Carbon Dioxide 23 mmol/L (23-31); Chloride 106 mmol/L (98-107); Potassium 3.9 mmol/L (3.5-5.1); Sodium 139 mmol/L (136-145)
[2021-12-28 01:02] LABS: ALT (SGPT) Less than 7 U/L (8-55); AST (SGOT) 13 U/L (5-34); Albumin 3.8 g/dL (3.4-4.8); Alkaline Phosphatase 37 U/L (40-110); Bilirubin, Total 0.3 mg/dL (0.2-1.2); Calcium 8.9 mg/dL (7.8-10.44); Estimated GFR 31; Globulin 3.1 g/dL (2.4-3.5); Glucose 93 mg/dL (80-115); Protein, Total 6.9 g/dL (5.8-8.1)
[2021-12-28] MEDS ORDERED: Ondansetron ODT 4 MG TAB ONE (02:27)
[2021-12-28] MEDS ORDERED: Ondansetron ODT 4 MG TAB SL PRN (03:45)
[2021-12-28] MEDS ORDERED: Acetaminophen 325 MG TAB PO PRN (03:45)
[2021-12-28] MEDS ORDERED: Ondansetron PF 4 MG/2 ML Vial IVP PRN (03:45)
[2021-12-28 04:19] VITALS: BMI 43.8
[2021-12-28] MEDS ORDERED: Nitroglycerin 0.4 MG TAB (25 Tab Bottle) SL PRN (04:40)
[2021-12-28] MEDS ORDERED: Acetaminophen 650 MG Suppository PR PRN (04:40)
[2021-12-28 05:11] LABS: Troponin I Less than 0.010 ng/mL (< 0.028)
[2021-12-28] MEDS: Sodium Chloride 0.9% 1,000 ML IV SCH ×2 (05:20→18:03)
[2021-12-28 06:42] LABS: Troponin I Less than 0.010 ng/mL (< 0.028)
[2021-12-28] MEDS: Aspirin Chewable 81 MG TAB PO SCH (07:56)
[2021-12-28] MEDS ORDERED: Regadenoson 0.4 MG/5 ML SYRINGE ONE (08:59)
[2021-12-28 14:37] LABS: Anion Gap 14 mmol/L (10-20); BUN (Urea Nitrogen) 25 mg/dL (9.8-20.1); Calc. Creatinine Clearance 59 mL/min (70-130); Calcium 8.9 mg/dL (7.8-10.44); Carbon Dioxide 23 mmol/L (23-31); Chloride 107 mmol/L (98-107); Estimated GFR 40; Glucose 101 mg/dL (80-115); Magnesium 2.1 mg/dL (1.6-2.6); Potassium 4.2 mmol/L (3.5-5.1); Sodium 140 mmol/L (136-145)
[2021-12-28] MEDS ORDERED: hydrOXYzine 25 MG TAB PO PRN (21:07)
[2021-12-28] MEDS ORDERED: SUMAtriptan Succinate 50 MG TAB PO PRN (21:20)
[2021-12-29 04:35] LABS: #Basophils 0.1 thou/uL (0.0-0.2); #Eosinphils 0.2 thou/uL (0.0-0.7); #Lymphocytes 0.8 thou/uL (1.20-3.40); #Monocytes 0.3 thou/uL (0.11-0.59); %Eosinophils 3.8 % (0.0-10.0); %Monocytes 5.7 % (0.0-10.0); %Neutrophils 75.5 % (42.0-75.0); Mean Corpuscular HGB CONC 33.2 g/dL (32.0-36.0); Mean Corpuscular Hemoglobin 32.2 pg (27.0-31.0); Mean Corpuscular Volume 97.1 fL (78.0-98.0); Mean Platelet Volume 8.3 fL (7.4-10.4); Platelet Count 159 thou/uL (130-400); RBC Distribution Width 12.8 % (11.5-14.5); Red Blood Cell (RBC) Count 3.09 mill/uL (4.20-5.40); White Blood Cell (WBC) Count 5.3 thou/uL (4.8-10.8)
[2021-12-29 04:55] LABS: Anion Gap 11 mmol/L (10-20); BUN (Urea Nitrogen) 23 mg/dL (9.8-20.1); Calc. Creatinine Clearance 71 mL/min (70-130); Calcium 8.6 mg/dL (7.8-10.44); Carbon Dioxide 24 mmol/L (23-31); Chloride 110 mmol/L (98-107); Estimated GFR 50; Glucose 102 mg/dL (80-115); Potassium 4.2 mmol/L (3.5-5.1); Sodium 141 mmol/L (136-145)
[2021-12-29] MEDS: Aspirin Chewable 81 MG TAB PO SCH (07:59)
[2021-12-29] MEDS ORDERED: Spironolactone 25 MG TAB PO SCH (08:00)
[2021-12-29 08:44] VITALS: BP 137/63; TEMP 98.4
[2021-12-29] MEDS ORDERED: Furosemide 40 MG TAB PO SCH (09:00)
[2021-12-29] MEDS ORDERED: OXcarbazepine 150 MG TAB PO SCH (09:00)
[2021-12-29] MEDS ORDERED: Escitalopram Oxalate 10 mg Tablet PO SCH (09:00)
[2021-12-29] MEDS ORDERED: Potassium Chloride 10 MEQ TAB PO SCH (09:00)
[2021-12-29] MEDS ORDERED: CeleCOXIB 100 MG CAP PO SCH (09:00)
[2021-12-29] MEDS ORDERED: Losartan 25 MG TAB PO SCH (09:00)
[2021-12-29] MEDS ORDERED: Gabapentin 300 MG CAP PO SCH (09:00)
== END 2021-12-29 11:30 | disposition home or self-care (01) ==
LOC: ERS 23:34 → 2SW 12-28 02:34
PROVIDERS: ADMIT Internal Medicine; ATTEND Internal Medicine
DX: R07.89 Other chest pain (principal); I12.9 Hypertensive chronic kidney disease with stage 1 through stage 4 chronic kidney disease, or unspecified chronic kidney disease; N18.30 Chronic kidney disease, stage 3 unspecified; N17.9 Acute kidney failure, unspecified; D63.1 Anemia in chronic kidney disease; I89.0 Lymphedema, not elsewhere classified; G89.4 Chronic pain syndrome; K21.9 Gastro-esophageal reflux disease without esophagitis; J90 Pleural effusion, not elsewhere classified; E66.01 Morbid (severe) obesity due to excess calories; Z68.41 Body mass index [BMI] 40.0-44.9, adult; Z79.899 Other long term (current) drug therapy; Z88.0 Allergy status to penicillin; Z20.822 Contact with and (suspected) exposure to COVID-19
CPT/HCPCS: 71045; 78452; 80048 ×2; 80053; 83735; 83880; 84484 ×2; 85025 ×2; 93005; 93017; 97139 ×3; 99285; A9500; U0003; U0005; 36415; G0378; J2785; J7050; Q0162

== ENCOUNTER 2022-05-25 17:22 | Emergency (ER) | payer OTHER ==
[2022-05-25] MEDS ORDERED: Boostrix 0.5 ML (Tdap) VIAL (>/=7 yrs of age) ONE (18:19)
[2022-05-25] MEDS ORDERED: Bacitracin 1 PK ONE (18:20)
[2022-05-25] MEDS ORDERED: Ketorolac Tromethamine 30 MG/ML VIAL ONE (18:20)
== END 2022-05-25 19:05 | disposition home or self-care (01) ==
LOC: ERS 17:22
DX: S81.812A Laceration without foreign body, left lower leg, initial encounter (principal); W22.8XXA Striking against or struck by other objects, initial encounter
CPT/HCPCS: 90471; 90715; 96372; J1885

== ENCOUNTER 2022-07-03 12:41 | Outpatient (CLI) | payer OTHER | END 2022-07-03 12:42 | disposition home or self-care (01) | LOC: SCSMRI 12:41 | PROVIDERS: ATTEND Specialist | DX: M75.121 Complete rotator cuff tear or rupture of right shoulder, not specified as traumatic (principal); M62.511 Muscle wasting and atrophy, not elsewhere classified, right shoulder ==